=== PATIENT | male | born 1940 | race Caucasian/White ===

== ENCOUNTER 2020-09-24 10:19 | Day surgery (SDC) | payer MEDICARE ==
[2020-09-24] VITALS (12 sets, daily range): BP systolic 112–141; BP diastolic 51–97
[~2020-09-24] VITALS: Ht 172.7 cm; Wt 108.3 kg
[2020-09-24] MEDS ORDERED: nitroGLYCERIN 0.4mg SUBLingual tab SL PRN (10:50)
[2020-09-24] MEDS ORDERED: normal saline 1,000 ML IV SCH (10:50)
[2020-09-24] MEDS ORDERED: diphenhydrAMINE 25mg capsule PO PRN (10:50)
[2020-09-24] MEDS ORDERED: LORazepam 0.5 MG tablet PO PRN (10:50)
[2020-09-24] MEDS ORDERED: glucagon, human recombinant 1mg kit SUBCUT PRN (10:55)
[2020-09-24] MEDS ORDERED: dextrose ORAL solution 15 GM/59 ML bottle PO PRN ×2 (10:55)
[2020-09-24] MEDS ORDERED: dextrose 50%-water 50ml dispensing syringe IV PRN ×2 (10:55)
[2020-09-24] MEDS ORDERED: MESSAGE TO PHARMACY PO ONE (10:55)
[2020-09-24] MEDS ORDERED: insulin Lispro (HumaLOG) vial - multi-dose SQ SCH (10:55)
[2020-09-24] MEDS ORDERED: LEVO100T9 PO (11:11)
[2020-09-24] MEDS ORDERED: METO50TA7 PO (11:11)
[2020-09-24] MEDS ORDERED: LISI10TA27 PO (11:11)
[2020-09-24] MEDS ORDERED: PIOG15TA8 PO (11:11)
[2020-09-24] MEDS ORDERED: POTA99TA21 PO (11:11)
[2020-09-24] MEDS ORDERED: IBUP1TAB11 PO (11:11)
[2020-09-24] MEDS ORDERED: FENO54TA4 PO (11:11)
[2020-09-24] MEDS ORDERED: METF-438 PO (11:11)
[2020-09-24] MEDS ORDERED: ASCO-294 PO (11:11)
[2020-09-24] MEDS ORDERED: HYDR25TA5 PO (11:11)
[2020-09-24] MEDS ORDERED: OMEG1CAP2 PO (11:11)
[2020-09-24] MEDS ORDERED: midazolam 1 mg/ML 2ml injection ONE (12:08)
[2020-09-24] MEDS ORDERED: iohexol 350MG/ML 100ml bottle IV ONE (12:08)
[2020-09-24] MEDS ORDERED: iohexol 350 MG/ML 50ML vial IV ONE (12:08)
[2020-09-24] MEDS ORDERED: fentaNYL/PF 50MCG/1 ML 2ML syringe ONE (12:08)
[2020-09-24] MEDS ORDERED: LIDOcaine 1% (10mg/ml)w/preservative injection 20ml MDV ONE (12:09)
[2020-09-24] MEDS ORDERED: proCHLORperazine 10 MG/2 ml inj IV PRN (13:45)
[2020-09-24] MEDS ORDERED: ondansetron/PF 4mg/2ml inj IV PRN (13:45)
[2020-09-24] MEDS ORDERED: HYDROcodone/acetaminophen 10/325mg tab PO PRN (13:45)
[2020-09-24] MEDS ORDERED: OXAZEpam 15mg capsule PO PRN (13:45)
[2020-09-24] MEDS ORDERED: HYDROcodone/acetaminophen 5mg/325mg tablet PO PRN (13:45)
[2020-09-24] MEDS ORDERED: insulin glargine (Lantus) pen - multi-dose SQ SCH (21:00)
== END 2020-09-24 20:00 | disposition home or self-care (01) ==
LOC: SSTAY O 10:19
PROVIDERS: ATTEND Internal Medicine Cardiovascular Disease
DX: R94.39 Abnormal result of other cardiovascular function study (principal); R06.09 Other forms of dyspnea; I25.10 Atherosclerotic heart disease of native coronary artery without angina pectoris; I25.82 Chronic total occlusion of coronary artery; E11.22 Type 2 diabetes mellitus with diabetic chronic kidney disease; I12.9 Hypertensive chronic kidney disease with stage 1 through stage 4 chronic kidney disease, or unspecified chronic kidney disease; N18.4 Chronic kidney disease, stage 4 (severe); E03.9 Hypothyroidism, unspecified; G47.33 Obstructive sleep apnea (adult) (pediatric); G62.9 Polyneuropathy, unspecified; J44.9 Chronic obstructive pulmonary disease, unspecified; Z86.14 Personal history of Methicillin resistant Staphylococcus aureus infection; Z88.5 Allergy status to narcotic agent; Z88.8 Allergy status to other drugs, medicaments and biological substances; Z96.651 Presence of right artificial knee joint; Z98.42 Cataract extraction status, left eye; Z90.49 Acquired absence of other specified parts of digestive tract; Z98.890 Other specified postprocedural states; Z87.440 Personal history of urinary (tract) infections; Z87.891 Personal history of nicotine dependence
CPT/HCPCS: 82948; 93005; 93458; 99152; C1760; C1769; J1644; J2001; J2250; J3010; J7030; Q0163; Q9967; A4620; A6258; J1815